=== PATIENT | male | born 1995 | race Two or more races ===

== ENCOUNTER 2024-09-21 21:58 | Emergency (ER) | payer OTHER ==
[~2024-09-21] VITALS: Ht 177.8 cm; Wt 75.0 kg
[2024-09-21 22:11] VITALS: BP 107/62; PULSE 60; RESP 18; TEMP 97.6; O2SAT 100
== END 2024-09-22 02:38 | disposition left against medical advice (07) ==
LOC: EMS 21:58
DX: R10.84 Generalized abdominal pain (principal); Z53.21 Procedure and treatment not carried out due to patient leaving prior to being seen by health care provider

== ENCOUNTER 2024-09-22 11:27 | Emergency (ER) | payer OTHER | END 2024-09-22 13:56 | disposition left against medical advice (07) | LOC: EMS 11:27 | DX: M79.673 Pain in unspecified foot (principal); Z53.21 Procedure and treatment not carried out due to patient leaving prior to being seen by health care provider ==

== ENCOUNTER 2024-11-14 10:45 | Emergency (ER) | payer OTHER ==
[~2024-11-14] VITALS: Ht 180.3 cm; Wt 72.0 kg
[2024-11-14 11:25] VITALS: BP 118/70; PULSE 78; RESP 16; TEMP 97.7; O2SAT 98
[2024-11-14 12:00] LABS: COVID AG,FIA SOURCE NASAL SWAB
[2024-11-14 12:06] LABS: BASOPHILS % (AUTO) 0.4 % (0.0-2.0); EOSINOPHILS % (AUTO) 0.2 % (1.0-6.0); HEMATOCRIT 46.6 % (41-53); HEMOGLOBIN 15.9 g/dL (13.5-17.5); LYMPHOCYTES # (AUTO) 1.1 K/uL (1.0-4.8); LYMPHOCYTES % (AUTO) 20.4 % (22.0-44.0); MEAN CORPUSCULAR HEMOGLOBIN 31.7 pg (26.0-34.0); MEAN CORPUSCULAR HGB CONC 34.2 G/dL (31.0-37.0); MEAN CORPUSCULAR VOLUME 93 fL (80-100); MONOCYTES # (AUTO) 0.3 K/uL (0.1-1.0); MONOCYTES % (AUTO) 6.2 % (2.0-9.0); NEUTROPHILS # (AUTO) 3.8 K/uL (1.8-7.7); NEUTROPHILS % (AUTO) 72.8 % (40.0-70.0); PLATELET COUNT (AUTO) 141 K/uL (150-450); RED BLOOD CELL COUNT(AUTO) 5.02 MIL/uL (4.50-5.90); RED CELL DISTRIBUTION WIDTH 13.9 % (11.5-14.5); WHITE BLOOD COUNT (AUTO) 5.2 K/uL (4.5-11.0)
[2024-11-14 12:13] LABS: ANION GAP 7 mmol/L (8-16); CALCIUM, TOTAL 9.2 mg/dL (8.8-10.5); CARBON DIOXIDE 26 mmol/L (22-29); CHLORIDE 106 mmol/L (98-107); CREATININE 0.69 mg/dL (0.60-1.30); GLOMERULAR FILTR. RATE CALC > 60 mL/min (>60); GLUCOSE,RANDOM 73 mg/dL (70-110); POTASSIUM 4.1 mmol/L (3.5-5.1); SODIUM SERUM 139 mmol/L (136-145); UREA NITROGEN, BLOOD 21 mg/dL (7-18)
[2024-11-14 12:24] LABS: SARS-COV2 (COVID) ANTIGEN,FIA Negative (Negative)
[2024-11-14 12:33] LABS: ALCOHOL, BLOOD (SERUM) < 3 mg/dL (0-10)
== END 2024-11-14 15:32 | disposition short-term general hospital (02) ==
LOC: EMS 10:46
DX: F84.0 Autistic disorder (principal); F12.90 Cannabis use, unspecified, uncomplicated; R44.0 Auditory hallucinations; Z98.890 Other specified postprocedural states; Z20.822 Contact with and (suspected) exposure to COVID-19
CPT/HCPCS: 99285; 87426; 80048; 85025; 36415; G0480

== ENCOUNTER 2025-04-30 18:36 | Emergency (ER) | payer OTHER ==
[~2025-04-30] VITALS: Ht 175.3 cm; Wt 65.9 kg
[2025-04-30 18:39] VITALS: TEMP 97.7
[2025-04-30 19:00] VITALS: BP 106/63; PULSE 53; RESP 17; O2SAT 98
== END 2025-04-30 21:29 | disposition home or self-care (01) ==
LOC: EMS 18:36
DX: R53.1 Weakness (principal); F12.90 Cannabis use, unspecified, uncomplicated; T73.0XXA Starvation, initial encounter; Z59.00 Homelessness unspecified; Z98.890 Other specified postprocedural states; Y92.89 Other specified places as the place of occurrence of the external cause
CPT/HCPCS: 99282; Z7502